=== PATIENT | female | born 1940 | race Caucasian/White ===

== ENCOUNTER → 2017-07-06 | Outpatient (CLI) | payer OTHER | END | disposition home or self-care (01) | LOC: LAB 10:32 | DX: R73.09 Other abnormal glucose (principal); E78.4 Other hyperlipidemia ==

== ENCOUNTER 2018-01-23 09:34 | Outpatient (CLI) | payer OTHER | END 2018-01-23 13:44 | disposition home or self-care (01) | LOC: LAB 09:34 | DX: R73.09 Other abnormal glucose (principal); E78.4 Other hyperlipidemia ==

== ENCOUNTER 2019-05-09 12:51 | Outpatient (CLI) | payer OTHER | END 2019-05-09 13:00 | disposition home or self-care (01) | LOC: NUCLEAR 12:51 | DX: M81.0 Age-related osteoporosis without current pathological fracture (principal) ==

== ENCOUNTER → 2019-05-09 | Outpatient (CLI) | payer OTHER | END | disposition home or self-care (01) | LOC: MAMO-SONO 11:08 | DX: E78.2 Mixed hyperlipidemia (principal); E03.8 Other specified hypothyroidism; J30.89 Other allergic rhinitis; C34.90 Malignant neoplasm of unspecified part of unspecified bronchus or lung; G40.802 Other epilepsy, not intractable, without status epilepticus; G47.33 Obstructive sleep apnea (adult) (pediatric); E83.52 Hypercalcemia; Z68.32 Body mass index [BMI] 32.0-32.9, adult; N60.21 Fibroadenosis of right breast; N60.22 Fibroadenosis of left breast; M81.0 Age-related osteoporosis without current pathological fracture; R05 Cough; Z12.31 Encounter for screening mammogram for malignant neoplasm of breast; E04.2 Nontoxic multinodular goiter ==